=== PATIENT | female | born 1980 | race African-American/Black ===

== ENCOUNTER 2016-05-10 00:59 | Inpatient (IN) | payer SELFPAY ==
[~2016-05-10] VITALS: Ht 170.2 cm; Wt 97.5 kg
[2016-05-10] VITALS (15 sets, daily range): BP systolic 133–156; BP diastolic 77–94
[2016-05-10] MEDS ORDERED: PROPOFOL 20 ML IV ONE ×3 (04:15→09:49)
[2016-05-10] MEDS ORDERED: KETAMINE HCL 500 MG/10 ML VIAL. ONE (04:46)
[2016-05-10] MEDS: IV NORMAL SALINE 1000ML BAG 1,000 ML IV SCH ×2 (05:21→13:21)
[2016-05-10] MEDS ORDERED: ONDANSETRON PF 4 MG/2 ML VIAL. IV PRN ×2 (05:30→09:15)
[2016-05-10] MEDS ORDERED: FENTANYL PF 100 MCG/2 ML VIAL. IV PRN ×3 (05:30→06:30)
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
[2016-05-10] MEDS ORDERED: IV RINGERS,LACTATED 1000ML 1,000 ML IV SCH (06:25)
[2016-05-10] MEDS ORDERED: IV NORMAL SALINE 1000ML BAG 1,000 ML IV ONE (06:30)
[2016-05-10] MEDS ORDERED: PROCHLORPERAZINE 10 MG/2 ML VIAL. IV PRN (06:30)
[2016-05-10] MEDS ORDERED: HYDROMORPHONE 2 MG/ML VIAL. IV PRN (06:30)
[2016-05-10] MEDS ORDERED: LIDOCAINE 1% 1 ML SYRINGE. ID PRN (06:30)
[2016-05-10] MEDS ORDERED: MORPHINE SULFATE 2 MG/ML DISP.SYRIN. IV PRN (06:30)
--- NOTE | 2016-05-10 07:05 | ACF ---
Admit Criteria Forms Admit Criteria Forms Admit Criteria Forms MUSCULOSKELETAL DISEASE GRG Clinical Indications for Admission to Inpatient Care (Place 'X' for any and all applicable criteria): Hospital admission is needed for appropriate care of the patient because of ANY ONE of the following: [X]I. Fracture, dislocation, or other musculoskeletal injury requiring inpatient care(medical) as indicated by ANY ONE of the following(4)(5)(6)(7) [ ]a) Vertebral fracture requiring observation for instability or neurologic compromise (8) [ ]b) Compartment syndrome (proven or cannot be ruled out during observation level of care) (9) [ ]c) Limb-threatening injury [ ]d) Major injury requiring inpatient stabilization such as traction initiation or external fixation before internal fixation or closure of complex or open fracture [X]e) Major injury requiring inpatient treatment after emergency or observation level care (as appropriate) [X]f) Severe pain requiring acute inpatient management [ ]II. Newly diagnosed or suspected bone, joint, or orthopedic device infection (e.g., osteomyelitis, septic arthritis) needing ANY ONE of the following(1)(2)(3) [ ]a) IV antibiotics that cannot be initiated in other than inpatient setting (e.g., patient too unstable or home infusion not available) [ ]b) Device removal or replacement [ ]c) Bone or soft tissue debridement [ ]d) Joint drainage (drain placement or repetitive aspirations) [ ]III. Severe rheumatologic disease (e.g., systemic lupus erythematosus, rheumatoid arthritis) with complications or comorbidities (Also use Optimal Recovery Care Criteria or General Recovery Criteria as appropriate on the basis of predominant condition), including ANY ONE of the following(10 )(11)(12)(13) [ ]a) Severe infection (e.g., EGG PROCESSOR infection, sepsis) (14) [ ]b) Respiratory complications, including ANY ONE of the following: [ ]i) Pleural effusion with respiratory compromise [ ]ii) Pulmonary hypertension with congestive failure [ ]iii) Respiratory failure [ ]iv) Pulmonary hemorrhage (15) [ ]c) Hematologic disease, including ANY ONE of the following: [ ]i) Coagulopathy with bleeding [ ]ii) Thrombosis with hypercoagulable state [ ]iii) Thrombotic thrombocytopenic purpura [ ]d) Cerebritis with seizures, psychosis, or other severe abnormalities [ ]e) Vertebral destruction with monitoring needed for cervical myelopathy& possible respiratory compromise [ ]f) Exacerbation that requires inpatient treatment (e.g., intravenous immunosuppression) (16) [ ]g) Acute renal failure [ ]IV. Severe vasculitis with complications or comorbidities (Also use Optimal Recovery Care Criteria or General Recovery Criteria as appropriate on the basis of predominant condition), including ANY ONE of the following(11)(12)(17)(18)(19)(20) [ ]a) EGG PROCESSOR vasculitis with seizures, psychosis, or other severe abnormalities (22) [ ]b) Renal failure (16) [ ]c) Pulmonary hemorrhage (15) [ ]d) Cerebral infarction [ ]e) Gastrointestinal ischemia [ ]f) Gangrene or threatened amputation [ ]g) Exacerbation that requires inpatient treatment (e.g., intravenous immunosuppression) (19)(21) [ ]V. Severe myopathy as indicated by ANY ONE of the following (28)(29) [ ]a) New onset of airway compromise or inability to swallow [ ]b) Respiratory deterioration with observation needed for impending respiratory failure [ ]c) Exacerbation that requires inpatient treatment (e.g., intravenous immunosuppression) [ ]. Severe gout (crystal arthropathy) as indicated by ANY ONE of the following (23)(24) [ ]a) Severe pain requiring acute inpatient management [ ]b) Exacerbation that requires inpatient treatment (e.g., intravenous treatment) [ ]VII.Rhabdomyolysis and ANY ONE of the following (25)(26)(27) [ ]a) Acute renal failure [ ]b) Need for intravenous hydration after emergency or observation level care (as appropriate) [ ]c) Inability to maintain oral hydration [ ]d) Change in mental status [ ]e) Electrolyte abnormality that remains after emergency or observation level care (as appropriate) [ ]VIII Post amputation complication, as indicated by ANY ONE of the following [ ]a) Infection [ ]b) Dehiscence [ ]c) Myodesis failure [ ]IX. Severe pain requiring acute inpatient management as indicated by ALL of the following (30)(31)(32) [ ]a) Continuous or frequent (e.g., every 2 to 4 hrs) parenteral analgesics required [A] [ ]b) Rapid improvement expected from treatment or acute intervention ( e.g., surgery, anesthesia procedure[B] [ ]X. Musculoskeletal Disease and ALL of the following: [ ]a) Symptom or finding for which emergency and observation care have failed or are not considered appropriate (Use General Criteria: Observation Care as appropriate) [ ]b) Presence of ANY ONE of the following [ ]i) A General Admission Criteria [ ]ii) A Pediatric General Admission Criteria The original [facility] content created by [facility] has been revised. The portions of the content which have been revised are identified through the use of italic text or in bold, and [facility] has neither reviewed nor approved the modified material. All other unmodified content is copyright [facility]. Please see references footnoted in the original [facility] edition 2016 AYESHA PARMAR May 10, 2016 07:05
[2016-05-10 08:16] LABS: CALCIUM 9.2 mg/dL (8.5-10.1); CREATININE 0.5 mg/dL (0.6-1.0); GFR 168.9; POTASSIUM 3.8 mmol/L (3.5-5.1)
--- NOTE | 2016-05-10 08:23 | RAD ---
Right elbow, 3 views, 05/10/2016: History: Elbow pain The proximal radius and ulna are dislocated medially relative to the capitellum and trochlea. No fracture is identified. A joint effusion is evident. There is subcutaneous edema posteriorly. IMPRESSION: Right elbow dislocation
[2016-05-10] MEDS ORDERED: ALBUTEROL SULFATE 2.5 MG/3 ML NEBU. NEB PRN (09:15)
[2016-05-10] MEDS ORDERED: ACETAMINOPHEN 325 MG TABLET. PO PRN (09:15)
[2016-05-10] MEDS ORDERED: HYDROCODONE/APAP 5/325MG TABLET. PO PRN ×2 (09:15→11:30)
[2016-05-10] MEDS ORDERED: hydrALAZINE 20 MG/ML VIAL. IVP PRN (09:15)
[2016-05-10 09:26] LABS: BASO % 0 % (0-3); EOS % 0 % (0-3); HEMATOCRIT 38.3 % (36.0-47.0); HEMOGLOBIN 12.8 g/dL (12.0-15.5); LYMPH # 2.2 x10^3/uL (1.0-4.8); LYMPH % 20 % (24-48); MEAN CORPUSCULAR HEMOGLOBIN 32 pg (25-35); MEAN CORPUSCULAR HGB CONC 34 g/dL (31-37); MEAN CORPUSCULAR VOLUME 97 fL (79-100); MONO % 7 % (0-9); NEUT % 72 % (31-73); PLATELET COUNT 237 x10^3/uL (140-400); RED BLOOD COUNT 3.97 x10^6/uL (3.50-5.40); RED CELL DISTRIBUTION WIDTH 14.2 % (11.5-14.5); WHITE BLOOD COUNT 10.8 x10^3/uL (4.0-11.0)
[2016-05-10] MEDS ORDERED: FENTANYL PF 100 MCG/2 ML VIAL. ONE (09:49)
[2016-05-10] MEDS ORDERED: MIDAZOLAM HCL 2 MG/2 ML VIAL. ONE (09:49)
[2016-05-10] MEDS ORDERED: SUCCINYLCHOLINE 200 MG/10 ML VIAL. ONE (09:50)
[2016-05-10] MEDS ORDERED: FENTANYL PF 100 MCG/2 ML VIAL. IV ONE (10:15)
[2016-05-10] MEDS ORDERED: LIDOCAINE 2% 100 MG/5 ML DISP.SYRIN. ONE (10:34)
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
[2016-05-10] MEDS ORDERED: HYDR25CA PO (11:40)
[2016-05-10] MEDS ORDERED: DOCU-27 PO (11:40)
[2016-05-10] MEDS ORDERED: HYDR-2678 PO (11:40)
--- NOTE | 2016-05-10 11:48 | RAD ---
Portable right elbow, 3 views, 05/10/2016: History: Postreduction evaluation Comparison is made to the study of earlier the same day. The current images were obtained through a radiopaque splint, compromising bony detail. The elbow is held in flexion producing suboptimal AP images. The previously seen elbow dislocation appears to have been satisfactorily reduced. No fracture is identified.
[2016-05-10] MEDS ORDERED: DOCUSATE SODIUM 100 MG CAPSULE PO SCH (12:00)
--- NOTE | 2016-05-10 12:29 | PDOC1 ---
History and Physical Social History Smoke: <1 pack per day ALCOHOL: heavy Drugs: None Current Problem List Problem List Problems Medical Problems: (1) Dislocation of right elbow Status: Acute Current Medications Current Medications Current Medications Medications (Trade) Dose Ordered Sig/Kuldip Start Time Stop Time Status Last Admin Dose Admin Acetaminophen (Tylenol) 325 mg PRN Q6HRS PRN 05/10/16 09:15 Acetaminophen/ Hydrocodone Bitart (Lortab 5/325) 2 tab PRN Q4HRS PRN 05/10/16 11:30 Albuterol Sulfate 2.5 mg 2.5 mg PRN Q4HRS PRN 05/10/16 09:15 Docusate Sodium 100 mg 100 mg DAILY 05/10/16 12:00 Fentanyl Citrate (Fentanyl 2ml Vial) 50 mcg 1X ONCE 05/10/16 10:15 05/10/16 10:18 DC 05/10/16 10:20 50 MCG Fentanyl Citrate 50 mcg 50 mcg PRN Q2HR PRN 05/10/16 05:30 05/11/16 05:29 05/10/16 08:51 50 MCG Hydralazine HCl (Apresoline) 10 mg PRN Q4HRS PRN 05/10/16 09:15 Hydromorphone HCl (Dilaudid) 0.5 mg PRN Q10MIN PRN 05/10/16 06:30 05/11/16 06:29 Ketamine HCl 500 mg STK-MED ONCE 05/10/16 04:46 05/10/16 04:47 DC Lactated Ringer's (Iv Lactated Ringers) 1,000 ml @ 30 mls/hr Q24H 05/10/16 06:25 05/10/16 18:24 05/10/16 09:32 30 MLS/HR Lidocaine HCl 100 mg STK-MED ONCE 05/10/16 10:34 05/10/16 10:35 DC Midazolam HCl (Versed) 2 mg STK-MED ONCE 05/10/16 09:49 05/10/16 09:50 DC Morphine Sulfate 1 mg 1 mg PRN Q10MIN PRN 05/10/16 06:30 05/11/16 06:29 Multivitamins/ Minerals/Thiamine HCl/Folic Acid/ Sodium Chloride (Infuvite Adult/ Iv Sodium Chloride 0.9% 1000ml Bag) 1,011.2 ml @ 100 mls/ hr DAILY 05/11/16 09:00 05/16/16 08:59 UNV Ondansetron HCl (Zofran) 4 mg PRN Q8HRS PRN 05/10/16 09:15 Prochlorperazine Edisylate (Compazine) 5 mg PACU PRN PRN 05/10/16 06:30 05/11/16 06:29 Propofol (Diprivan) 20 ml @ As Directed STK-MED ONCE 05/10/16 09:49 05/10/16 09:50 DC Sodium Chloride (Iv Sodium Chloride 0.9% 1000ml Bag) 1,000 ml @ 1,000 mls/hr 1X ONCE 05/10/16 06:30 05/10/16 07:29 DC 05/10/16 04:00 1,000 MLS/HR Succinylcholine Chloride (Anectine) 200 mg STK-MED ONCE 05/10/16 09:50 05/10/16 09:51 DC Allergies Allergies Allergies Coded Allergies Type Severity Reaction Last Updated Verified No Known Drug Allergies 05/10/16 No ROS Review of System CONSTITUTIONAL: No fever or chills EYES: No recent changes SKIN: No rash or itching CARDIOVASCULAR: No chest pain, syncope, palpitations, or edema RESPIRATORY: No SOB or cough GASTROINTESTINAL: No nausea, vomiting or abdominal pain NEUROLOGICAL: No headaches or weakness ENDOCRINE: No cold or heat intolerance GENITOURINARY: No urgency or frequency of urination MUSCULOSKELETAL: RT SHOULDER PAIN LYMPHATICS: No enlarged lymph nodes PSYCHIATRIC: No anxiety or depression Physical Exam Physical Exam GEN.: No apparent distress. Alert and oriented. HEENT: Head is normocephalic, atraumatic NECK: Supple. NO JVD LUNGS: Clear to auscultation. Normal airflow. HEART: RRR, S1, S2 present. Peripheral pulses intact ABDOMEN: Soft, nontender. Positive bowel sounds. EXTREMITIES: normal sensation and capillary refill. NEUROLOGIC: Normal speech, normal tone PSYCHIATRIC: Normal affect, normal mood. SKIN: No ulcerations Vitals Vitals Vital Signs Date Time Temp Pulse Resp B/P Pulse Ox O2 Delivery O2 Flow Rate FiO2 05/10/16 12:00 98.2 86 20 150/86 97 Room Air 98.2 05/10/16 11:15 10 Labs Labs Laboratory Tests Test 05/10/16 04:00 05/10/16 09:00 Sodium Level 144mmol/L (136-145) Potassium Level 3.8mmol/L (3.5-5.1) Chloride Level 102mmol/L (98-107) Carbon Dioxide Level 26mmol/L (21-32) Anion Gap 16 (6-14) Blood Urea Nitrogen 11mg/dL (7-20) Creatinine 0.5mg/dL (0.6-1.0) Estimated GFR (Cockcroft-Gault) 168.9 Glucose Level 95mg/dL (70-99) Calcium Level 9.2mg/dL (8.5-10.1) Ethyl Alcohol Level 349mg/dL (0-10) White Blood Count 10.8x10^3/uL (4.0-11.0) Red Blood Count 3.97x10^6/uL (3.50-5.40) Hemoglobin 12.8g/dL (12.0-15.5) Hematocrit 38.3% (36.0-47.0) Mean Corpuscular Volume 97fL (79-100) Mean Corpuscular Hemoglobin 32pg (25-35) Mean Corpuscular Hemoglobin Concent 34g/dL (31-37) Red Cell Distribution Width 14.2% (11.5-14.5) Platelet Count 237x10^3/uL (140-400) Neutrophils (%) (Auto) 72% (31-73) Lymphocytes (%) (Auto) 20% (24-48) Monocytes (%) (Auto) 7% (0-9) Eosinophils (%) (Auto) 0% (0-3) Basophils (%) (Auto) 0% (0-3) Neutrophils # (Auto) 7.8x10^3uL (1.8-7.7) Lymphocytes # (Auto) 2.2x10^3/uL (1.0-4.8) Monocytes # (Auto) 0.8x10^3/uL (0.0-1.1) Eosinophils # (Auto) 0.0x10^3/uL (0.0-0.7) Basophils # (Auto) 0.0x10^3/uL (0.0-0.2) Laboratory Tests Test 05/10/16 04:00 05/10/16 09:00 Sodium Level 144mmol/L (136-145) Potassium Level 3.8mmol/L (3.5-5.1) Chloride Level 102mmol/L (98-107) Carbon Dioxide Level 26mmol/L (21-32) Anion Gap 16 (6-14) Blood Urea Nitrogen 11mg/dL (7-20) Creatinine 0.5mg/dL (0.6-1.0) Estimated GFR (Cockcroft-Gault) 168.9 Glucose Level 95mg/dL (70-99) Calcium Level 9.2mg/dL (8.5-10.1) Ethyl Alcohol Level 349mg/dL (0-10) White Blood Count 10.8x10^3/uL (4.0-11.0) Red Blood Count 3.97x10^6/uL (3.50-5.40) Hemoglobin 12.8g/dL (12.0-15.5) Hematocrit 38.3% (36.0-47.0) Mean Corpuscular Volume 97fL (79-100) Mean Corpuscular Hemoglobin 32pg (25-35) Mean Corpuscular Hemoglobin Concent 34g/dL (31-37) Red Cell Distribution Width 14.2% (11.5-14.5) Platelet Count 237x10^3/uL (140-400) Neutrophils (%) (Auto) 72% (31-73) Lymphocytes (%) (Auto) 20% (24-48) Monocytes (%) (Auto) 7% (0-9) Eosinophils (%) (Auto) 0% (0-3) Basophils (%) (Auto) 0% (0-3) Neutrophils # (Auto) 7.8x10^3uL (1.8-7.7) Lymphocytes # (Auto) 2.2x10^3/uL (1.0-4.8) Monocytes # (Auto) 0.8x10^3/uL (0.0-1.1) Eosinophils # (Auto) 0.0x10^3/uL (0.0-0.7) Basophils # (Auto) 0.0x10^3/uL (0.0-0.2) VTE Prophylaxis Ordered VTE Prophylaxis Devices: No VTE Pharmacological Prophylaxi: No DERIK WU MD May 10, 2016 12:29
[2016-05-10] MEDS ORDERED: MULTIVIT INFUSN,ADULT 4,VIT K 10 ML, THIAMINE 100 MG, FOLIC ACID 1 MG in IV NORMAL SALI... IV SCH (13:00)
--- NOTE | 2016-05-10 17:48 | PDOC ---
BRIEF OPERATIVE NOTE Pre-Op Diagnosis right elbow dislocation Post-Op Diagnosis same Procedure Performed closed reduction right elbow dislocation under ansthesia Surgeon Beto Lopez MD [employer] Leak Tester none Anesthesia Type: General Blood Loss none Complications none Additional Remarks Elbow became unstable at 60 degrees of extension under fluoro. BETO LOPEZ MD May 10, 2016 17:48
--- NOTE | 2016-05-11 01:14 | SSS ---
ADMIT DATE: 05/10/2016 CHIEF COMPLAINT: Right elbow pain status post mechanical fall. HISTORY OF PRESENT ILLNESS: A 36-year-old female with most significant medical condition presented to the ER with complaints of right arm pain and at the time of presentation, she was intoxicated with alcohol. Her alcohol level is more than 450. Reportedly, the patient was drinking vodka and having some constitution party and she fell and injured her right arm. As per the report, she had right elbow dislocation and she was admitted to the hospital for pain control and orthopedic evaluation. PAST MEDICAL HISTORY: None. PAST SURGICAL HISTORY: None. FAMILY HISTORY: Not significant, questionable hypertension. SOCIAL HISTORY: Drinks alcohol and smokes cigarettes around a pack a day. No substance abuse. REVIEW OF SYSTEMS: Please see my electronic H and P. PHYSICAL EXAMINATION: Please see my electronic H and P. LABORATORY FINDINGS: CBC is within normal range. BMP is within normal range. Toxicology; ethyl alcohol level 349. IMAGING STUDIES: Elbow x-ray showed right elbow dislocation. ASSESSMENT AND PLAN: 1. Ethyl alcohol intoxication. 2. Right elbow dislocation status post fall. PLAN: The patient has closed reduction of right elbow dislocation under anesthesia by Dr. Uriostegui. Post-surgery, she did tolerate pain very well. She was started on a multivitamin supplements and thiamine and folic acid replacement. At the time of my examination, she is alert and oriented x 3. BRIEF HOSPITAL COURSE: The patient has been discharged home after closed reduction of her right elbow. She tolerated the procedure very well. Pain has been controlled and she has been sent home in stable condition with pain medications. The patient has been advised to follow up with Dr. Uriostegui in 2 weeks. Discharge instructions have been provided. DISCHARGE DISPOSITION: Home. DISCHARGE CONDITION: Stable. PROGNOSIS: Good. FOLLOWUP: With Dr. Uriostegui. MEDICATIONS: Hydrocodone 5/325 b.i.d. as needed. Total time spent for history, physical and discharge is 45 minutes. DERIK WU MD DR: LIZA/aimee JOB#: [id number] / [id number] [place]
--- NOTE | 2016-05-18 15:21 | PDOC4 ---
Operative Note Operative Note Date of Operation: 05/10/2016 Preoperative Diagnosis: Right elbow Simple Dislocation Postoperative Diagnosis: same Operation Performed: Closed reduction of right elbow dislocation, requiring anesthesia, CPT 65909 Surgeon: Beto Lopez MD Medical Records Receptionist: none Anesthesia: General Estimated Blood Loss: none Implants: none Surgical Indication: The patient is a 36 year old right-hand dominant female who supposedly fell while intoxicated sustaining the above said injury. Xrays revealed a medial simple elbow dislocation. She underwent an attempted closed reduction in the ER, but she was unable to be sedated enough due to her level of intoxication. The decision was made to take her to the OR for a closed reduction under anesthesia Description of Procedure: The patient was identified, marked, and the procedure was reconfirmed by myself prior to taking them to the operating room. IV antibiotics were held due to the closed nature of the case. The patient was positioned appropriately and underwent adequate general anesthesia. The elbow was reduced under paralysis with return of normal elbow alignment by applying axial traction and rotatory force. There were no other injuries or fractures noted on postreduction xrays. The patient was stable from 60-100 degrees of flexion. She was then splinted in a position of comfort. Disposition: The patient taken to the recovery room awake, alert, and in stable condition. Complications: The patient tolerated the procedure well without complications. Post-operative Plan: Discharge instructions were provided. She is to remain in the splint until follow-up in one week. BETO LOPEZ MD May 18, 2016 15:21
== END 2016-05-10 17:45 | disposition home or self-care (01) | DRG 563 ==
LOC: ER 00:59 → 4 NORTH 04:55 → OBSVTOIN 05:03
PROVIDERS: ADMIT Internal Medicine; ATTEND Internal Medicine
PROC: 0RSLXZZ Reposition Right Elbow Joint, External Approach (ICD-10-PCS; principal; 2016-05-10 10:15)
DX: S53.104A Unspecified dislocation of right ulnohumeral joint, initial encounter (principal); F10.129 Alcohol abuse with intoxication, unspecified; F17.210 Nicotine dependence, cigarettes, uncomplicated; G83.9 Paralytic syndrome, unspecified; Y90.8 Blood alcohol level of 240 mg/100 ml or more; W18.39XA Other fall on same level, initial encounter; Z79.899 Other long term (current) drug therapy; Y93.89 Activity, other specified; Y92.89 Other specified places as the place of occurrence of the external cause; Y99.8 Other external cause status
CPT/HCPCS: 36415; 73070; 73080; 80048; 85027; 94250; 94760; 96360; 99406; G0379; G0480; J0330; J2250; J2704; J3010; J7030; J7120; 99285-25